=== PATIENT | female | born 1965 | race Caucasian/White ===

== ENCOUNTER 2017-05-27 12:17 | Inpatient (IN) | payer BC ==
[2017-05-27] MEDS ORDERED: Acetaminophen 500 MG TAB ONE (13:07)
--- NOTE | 2017-05-27 13:19 | RAD ---
RADIOGRAPH CHEST 2 VIEWS: Date: 05-27-17 Time: 12:52 p.m. HISTORY: 52-year-old female with dyspnea. COMPARISON: None. FINDINGS: Lungs are hypoinflated. There is cardiomegaly. There are mild diffuse interstitial densities which ar e nonspecific, but could represent mild pulmonary interstitial edema. Cardiomegaly. Mild ectasia and tortuosity of the thoracic aorta. No moderate sized or large pleural effusions. No consolidation. No pneumothorax. Calcified granuloma in left upper lobe. IMPRESSION: Probable congestive heart failure: Cardiomegaly and probable pulmonary interstitial edema. GRIS POS: [facility]
[2017-05-27 13:51] LABS: #Basophils 0.1 thou/uL (0.0-0.2); #Eosinphils 0.1 thou/uL (0.0-0.7); #Lymphocytes 1.3 thou/uL (1.20-3.40); #Monocytes 0.8 thou/uL (0.11-0.59); #Neutrophils 13.8 thou/uL (1.40-6.50); %Basophils 0.5 % (0.0-1.0); %Eosinophils 0.6 % (0.0-10.0); %Lymphocytes 8.2 % (21.0-51.0); %Monocytes 4.9 % (0.0-10.0); %Neutrophils 85.8 % (42.0-75.0); Hemoglobin 14.3 g/dL (12.0-16.0); Mean Corpuscular HGB CONC 33.5 g/dL (32.0-36.0); Mean Corpuscular Hemoglobin 32.3 pg (27.0-31.0); Mean Corpuscular Volume 96.4 fl (81.0-99.0); Mean Platelet Volume 7.2 fL (7.4-10.4); Platelet Count 239 thou/uL (130-400); RBC Distribution Width 11.7 % (11.5-14.5); Red Blood Cell (RBC) Count 4.43 mill/uL (4.20-5.40)
[2017-05-27 14:19] LABS: ALT (SGPT) 86 U/L (8-55); AST (SGOT) 75 U/L (5-34); Albumin 4.1 g/dL (3.5-5.0); Alkaline Phosphatase 114 U/L (40-150); Anion Gap 15 mmol/L (10-20); BUN (Urea Nitrogen) 10 mg/dL (9.8-20.1); Bilirubin, Total 1.1 mg/dL (0.2-1.2); CK (CPK) 40 U/L (29-168); Calc. Creatinine Clearance 0 mL/min (70-130); Calcium 9.5 mg/dL (7.8-10.44); Carbon Dioxide 19 mmol/L (22-29); Chloride 102 mmol/L (98-107); Estimated GFR-MDRD Greater than 90; Globulin 3.3 g/dL (2.4-3.5); Glucose 118 mg/dL (70-105); Potassium 3.4 mmol/L (3.5-5.1); Protein, Total 7.4 g/dL (6.0-8.3); Sodium 133 mmol/L (136-145)
[2017-05-27 14:22] LABS: CKMB 0.5 ng/mL (0-6.6); Troponin I 0.031 ng/mL (< 0.028)
[2017-05-27] MEDS ORDERED: ISOVUE-370 76%-LOCM 1 ML ONE (14:29)
--- NOTE | 2017-05-27 17:00 | CT ---
CT ARTERIOGRAM CHEST WITH IV CONTRAST AND 3D MIP IMAGING 05/27/17 HISTORY: Dyspnea. Chest pain. FINDINGS: There is good contrast opacification of the pulmonary arteries and thoracic aorta with bovine origin of the great vessels at the aortic arch. Patchy areas of interstitial and alveolar infiltrate are pre sent throughout each lung, most pronounced at the posterior segment and the upper lobes. Calcified gr anulomata are consistent with healed granulomatous disease. No bulky adenopathy is apparent. IMPRESSION: 1. No CT evidence of pulmonary embolus. 2. Multifocal pneumonitis. POS: [facility]
[2017-05-27] MEDS ORDERED: Azithromycin 500 MG in Sodium Chloride 0.9% 250 ML 250 ML IVPB SCH (17:30)
[2017-05-27] MEDS ORDERED: cefTRIAXone\\ROCEPHIN 2 GM in Sodium Chloride 0.9% 100 ML IVPB SCH (17:30)
[2017-05-27] MEDS ORDERED: Oseltamivir 75 MG CAP PO SCH (17:30)
[2017-05-27 18:41] LABS: Troponin I 0.046 ng/mL (< 0.028)
[2017-05-27] MEDS ORDERED: Ondansetron HCl/PF 4 MG/2 ML Vial IVP PRN ×2 (19:56→20:05)
[2017-05-27] MEDS ORDERED: Ondansetron ODT 4 MG TAB SL PRN (19:56)
[2017-05-27] MEDS ORDERED: Acetaminophen 325 MG TAB PO PRN (19:56)
--- NOTE | 2017-05-27 19:58 | HP ---
PRIMARY CARE PHYSICIAN: Lisandro Blake M.D. CHIEF COMPLAINT: Fever, chills, and shortness of breath. HISTORY OF PRESENT ILLNESS: Ms. Wheatley is a very pleasant 52-year-old female that has no significant past medical history other than thyroid disease. She was in her usual state of health until about 3 days ago when she started having fever, chills, and severe body aches as well as a headache. Her sis ter is a nurse practitioner, so she says she talked to her sister about her symptoms and they empiric ally diagnosed her as having the flu and called in Tamiflu for her and she started taking it. She st ated that she started to feel a little bit better, but then last night she says that she had some french sea and vomited once and also had 2 episodes of watery stool. There was no blood and then this morni ng, she started having a cough which has been nonproductive. She felt dizzy and lightheaded and then she says that about 4:00 in the morning, she could barely breathe or she started having trouble kathy thing and then it got progressively worse through the day. By 8:00 a.m., she says that she was havin g quite a bit of trouble breathing even at rest and then if she got up and moved around, it got much worse. This is the reason that she came to the ER. In the ER, she was noted to have a high temperat ure and her white blood cell count is elevated and the chest x-ray was significant for interstitial i nfiltrate and she is being admitted for presumed infectious pneumonitis. The patient denies any ches t pain. She does say that her shortness of breath did seem to be worse when she lays back, but she d enied any lower extremity edema. REVIEW OF SYSTEMS: General: She has had subjective fever and chills, but no night sweats, no weight loss. HEENT: She does complain of headache, but no sore throat or rhinorrhea, no neck pain, no rain nopathy. Pulmonary: As the history of present illness. She denies any hemoptysis, no wheezing. Ca rdiovascular: As the history of present illness. No chest pain, but she does have dyspnea on exerti on as well as breath. Positive for orthopnea, but no PND. No lower extremity edema. Gastrointestin al: She has had nausea and vomiting as well as diarrhea. No abdominal pain. Genitourinary: No men tion of any urinary frequency, hematuria or hesitancy. Neurologic: No focal weakness, numbness or s eizures. Psychiatric: No symptoms of anxiety or depression. Skin and integument: No skin changes. No rash. PAST MEDICAL HISTORY: Significant for hypothyroidism. PAST SURGICAL HISTORY: She has had a hysterectomy, a cystocele and rectocele repair as well as a compa ast biopsy. ALLERGIES: CHLORHEXIDINE, which she says causes a severe rash and even respiratory distress. SOCIAL HISTORY: She is , has 3 children. 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 She is a former smoker. She quit 25 years ago. Prior to that, she smoked abo ut a pack a day for 7 years. She occasionally drinks. FAMILY HISTORY: Significant for lung cancer in her father who was a smoker and breast cancer in her mother. CURRENT MEDICATIONS: Include levothyroxine. PHYSICAL EXAMINATION: GENERAL: She is alert and oriented. She appears to be in no acute distress. VITAL SIGNS: Her blood pressure was 180/74, heart rate 85, respiratory rate 24, temperature max was 103, currently is 99.7. HEENT: Her pupils are equal, round, and reactive. Extraocular muscles are intact. Her sclerae are anicteric. Throat: There is no erythema, no exudates. NECK: No adenopathy, no bruits. LUNGS: She has got bilateral rales. I did not appreciate any wheezing or rhonchi. She had normal i nspiratory and expiratory excursion. There was no E to A changes or egophony. CARDIOVASCULAR: She has a normal S1, S2. There is no S3 or S4. No murmurs, clicks or rubs. ABDOMEN: Soft, obese, nontender, nondistended. Positive for bowel sounds. No rebound, no guarding. NEUROLOGIC: The exam is grossly nonfocal. LABORATORY RESULTS: Sodium 133, potassium 3.4, chloride is 102, CO2 is 19, BUN of 10, creatinine 0.5 9, glucose is 118. Her AST was 75, ALT is 86. White blood cell count 16, hemoglobin 14.3, hematocri t is 42.7, platelet count is 239. D-dimer was slightly elevated at 0.56, and again on the CT scan as well as chest x-ray, there was evidence of some multifocal pneumonitis. ASSESSMENT: 1. This is a pleasant 52-year-old female that presents with high fever as well as shortness of breat h. She has an elevated white blood cell count. I suspect that the patient if she did in fact have i nfluenza, may have a post-influenza pneumonia. This could all be viral as well. She did have a slig htly elevated troponin, but I suspect this is likely due to demand ischemia and not a primary cardiac event. Congestive heart failure is less likely as clinically she does not appear to have heart fail ure. No lower extremity edema. There is no distended neck veins and her proBNP was normal. For the plan, she will be admitted. We will go ahead and continue placing her on telemetry. Blood cultures will be obtained and we will start her empirically on antibiotics for community-acquired pneumonia. 2. For the elevated troponin, we will go ahead and get an echocardiogram as it is possible that even if she does have significant coronary artery disease, she could be at risk for like a viral pericard itis or myocarditis. We will continue to trend her cardiac enzymes. 3. For her hypothyroidism, we will continue her usual dose of Synthroid and she will be placed on de ep venous thrombosis as well as gastrointestinal prophylaxis.
[2017-05-27] MEDS ORDERED: Milk Of Magnesia 30 ML UDCUP PO PRN (20:05)
[2017-05-27] MEDS ORDERED: Ondansetron ODT 4 MG TAB PO PRN (20:05)
[2017-05-27] MEDS ORDERED: Mag-Al 1200 mg/1200 mg/30 ML UDCUP PO PRN (20:05)
[2017-05-27] MEDS: Famotidine 20 MG TAB PO SCH (21:12)
[2017-05-27] MEDS: Sodium Chloride 0.9% 1,000 ML IV SCH (21:12)
[2017-05-27] MEDS: Benzonatate 100 MG CAP PO PRN (21:13)
[2017-05-27 21:30] LABS: Troponin I 0.033 ng/mL (< 0.028)
[2017-05-28] MEDS: Acetaminophen 325 MG TAB PO PRN ×2 (00:33→18:18)
[2017-05-28 05:41] LABS: #Basophils 0.1 thou/uL (0.0-0.2); #Eosinphils 0.2 thou/uL (0.0-0.7); #Lymphocytes 2.9 thou/uL (1.20-3.40); #Monocytes 1.1 thou/uL (0.11-0.59); #Neutrophils 8.8 thou/uL (1.40-6.50); %Basophils 0.7 % (0.0-1.0); %Eosinophils 1.7 % (0.0-10.0); %Monocytes 8.4 % (0.0-10.0); %Neutrophils 67.3 % (42.0-75.0); Hemoglobin 12.7 g/dL (12.0-16.0); Mean Corpuscular HGB CONC 34.5 g/dL (32.0-36.0); Mean Corpuscular Hemoglobin 33.4 pg (27.0-31.0); Mean Corpuscular Volume 96.7 fl (81.0-99.0); Mean Platelet Volume 7.1 fL (7.4-10.4); Platelet Count 229 thou/uL (130-400); RBC Distribution Width 11.6 % (11.5-14.5); Red Blood Cell (RBC) Count 3.81 mill/uL (4.20-5.40); White Blood Cell (WBC) Count 13.1 thou/uL (4.8-10.8)
[2017-05-28 05:57] LABS: Anion Gap 10 mmol/L (10-20); BUN (Urea Nitrogen) 8 mg/dL (9.8-20.1); Calc. Creatinine Clearance 213 mL/min (70-130); Calcium 8.6 mg/dL (7.8-10.44); Carbon Dioxide 25 mmol/L (22-29); Chloride 105 mmol/L (98-107); Estimated GFR-MDRD Greater than 90; Glucose 81 mg/dL (70-105); Sodium 137 mmol/L (136-145)
[2017-05-28] MEDS: Famotidine 20 MG TAB PO SCH ×2 (09:18→21:03)
[2017-05-28] MEDS: Benzonatate 100 MG CAP PO PRN ×3 (09:19→22:07)
[2017-05-28] MEDS: Oseltamivir 75 MG CAP PO SCH ×2 (09:19→21:03)
[2017-05-28] MEDS: Enoxaparin Sodium 40 MG/0.4 ML SYRINGE SC SCH (09:19)
--- NOTE | 2017-05-28 10:08 | PDOC.PN ---
- Subjective Encounter Start Date: 05/28/17 Encounter Start Time: 10:07 Ms. Wheatley says she does feel a little better this morning. She is less short of brath at rest. She notes a continued dry cough. - Objective Resuscitation Status: Resuscitation Status FULL:Full Resuscitation MAR Reviewed: Yes Vital Signs & Weight: Vital Signs (12 hours) Temp Pulse Resp BP Pulse Ox 05/28/17 08:57 63 20 94 L 05/28/17 04:55 98.4 F 59 L 18 139/63 96 05/28/17 00:30 100.7 F H 77 20 176/77 H 94 L Weight Weight 240 lb 14.4 oz I&O: 05/27/17 05/28/17 05/29/17 06:59 06:59 06:59 Intake Total 1371 Output Total 550 Balance 821 Result Diagrams: 05/28/17 05:09 05/28/17 05:09 Phys Exam - Physical Examination HEENT: PERRLA + rales scattered , no wheezing or rhonchi Cardiovascular: RRR, no significant murmur, no rub Gastrointestinal: soft, non-tender, positive bowel sounds Musculoskeletal: edema present + lower extremity edema Dx/Plan (1) Pneumonia, primary atypical Code(s): J18.9 - PNEUMONIA, UNSPECIFIED ORGANISM Status: Acute (2) Hypothyroidism Code(s): E03.9 - HYPOTHYROIDISM, UNSPECIFIED Status: Acute - Plan * Atypical Pneumonia- Will continue Rocephin and Azithromycin * Elevated Troponin- I suspect this ma be due to demand ischemia- will await Echo * Hypothyroidism- will continue Levothyroxine.
[2017-05-28] MEDS ORDERED: Potassium Chloride 20 MEQ TAB PO SCH (10:15)
[2017-05-28] MEDS ORDERED: Levothyroxine Sodium 125 MCG TAB PO SCH ×2 (10:15→10:30)
[2017-05-28] MEDS: Sodium Chloride 0.9% 1,000 ML IV SCH (11:15)
[2017-05-28] MEDS: traMADol HCl 50 MG TAB PO PRN (12:20)
[2017-05-28 15:21] VITALS: BMI 41.3
[2017-05-28] MEDS: cefTRIAXone\\ROCEPHIN 2 GM in Sodium Chloride 0.9% 100 ML IVPB SCH (16:24)
[2017-05-28] MEDS: Azithromycin 500 MG in Sodium Chloride 0.9% 250 ML 250 ML IVPB SCH (18:18)
[2017-05-29] MEDS: Acetaminophen 325 MG TAB PO PRN ×2 (02:48→09:04)
[2017-05-29] MEDS: Benzonatate 100 MG CAP PO PRN ×3 (02:48→19:38)
[2017-05-29] MEDS: Levothyroxine Sodium 125 MCG TAB PO SCH (02:50)
[2017-05-29 05:29] LABS: #Basophils 0.1 thou/uL (0.0-0.2); #Eosinphils 0.5 thou/uL (0.0-0.7); #Lymphocytes 2.9 thou/uL (1.20-3.40); #Monocytes 1.1 thou/uL (0.11-0.59); %Basophils 0.8 % (0.0-1.0); %Eosinophils 4.4 % (0.0-10.0); %Lymphocytes 24.9 % (21.0-51.0); %Monocytes 9.7 % (0.0-10.0); %Neutrophils 60.2 % (42.0-75.0); Hemoglobin 12.5 g/dL (12.0-16.0); Mean Corpuscular Hemoglobin 32.5 pg (27.0-31.0); Mean Corpuscular Volume 98.7 fl (81.0-99.0); Mean Platelet Volume 7.8 fL (7.4-10.4); Platelet Count 165 thou/uL (130-400); RBC Distribution Width 11.9 % (11.5-14.5); Red Blood Cell (RBC) Count 3.85 mill/uL (4.20-5.40); White Blood Cell (WBC) Count 11.5 thou/uL (4.8-10.8)
[2017-05-29 05:41] LABS: Anion Gap 14 mmol/L (10-20); BUN (Urea Nitrogen) 7 mg/dL (9.8-20.1); Calc. Creatinine Clearance 210 mL/min (70-130); Calcium 8.9 mg/dL (7.8-10.44); Carbon Dioxide 20 mmol/L (22-29); Chloride 105 mmol/L (98-107); Estimated GFR-MDRD Greater than 90; Glucose 87 mg/dL (70-105); Potassium 3.9 mmol/L (3.5-5.1); Sodium 135 mmol/L (136-145)
[2017-05-29] MEDS: Enoxaparin Sodium 40 MG/0.4 ML SYRINGE SC SCH (09:03)
[2017-05-29] MEDS: Famotidine 20 MG TAB PO SCH ×2 (09:03→19:39)
[2017-05-29] MEDS: Oseltamivir 75 MG CAP PO SCH (09:04)
--- NOTE | 2017-05-29 10:25 | PDOC.PN ---
- Subjective Encounter Start Date: 05/29/17 Encounter Start Time: 10:22 Ms. Wheatley says she is feeling better, but just has a headache this morning. She says the cough is improving, and she is less short of breath. - Objective Resuscitation Status: Resuscitation Status FULL:Full Resuscitation MAR Reviewed: Yes Vital Signs & Weight: Vital Signs (12 hours) Temp Pulse Resp BP Pulse Ox 05/29/17 09:00 98.1 F 61 16 150/72 H 95 05/29/17 04:00 98.9 F 54 L 22 H 141/74 H 97 05/29/17 00:12 99.3 F 69 22 H 145/77 H 97 Weight Admit Weight 239 lb 6.4 oz Weight 240 lb 14.4 oz I&O: 05/28/17 05/29/17 05/30/17 06:59 06:59 06:59 Intake Total 1371 2960 Output Total 550 Balance 821 2960 Result Diagrams: 05/29/17 05:02 05/29/17 05:02 Phys Exam - Physical Examination HEENT: PERRLA Respiratory: no wheezing, no rhonchi + scattered rales Cardiovascular: RRR, no significant murmur Gastrointestinal: soft, non-tender, positive bowel sounds Musculoskeletal: no edema Dx/Plan (1) Pneumonia, primary atypical Code(s): J18.9 - PNEUMONIA, UNSPECIFIED ORGANISM Status: Acute (2) Hypothyroidism Code(s): E03.9 - HYPOTHYROIDISM, UNSPECIFIED Status: Acute - Plan * Atypical Pneumonia- will continue Rocephin and Azithromycin * She still has some hypoxemia- will wean oxygen as tolerated * Hypothyroidism- stable * Can discontinue Telemetry * Hopefully home soon.
[2017-05-29] MEDS: traMADol HCl 50 MG TAB PO PRN ×2 (13:10→19:38)
[2017-05-29] MEDS: cefTRIAXone\\ROCEPHIN 2 GM in Sodium Chloride 0.9% 100 ML IVPB SCH ×2 (15:57→18:40)
[2017-05-29] MEDS: Azithromycin 500 MG in Sodium Chloride 0.9% 250 ML 250 ML IVPB SCH (19:07)
[2017-05-30] MEDS: traMADol HCl 50 MG TAB PO PRN (01:43)
[2017-05-30] MEDS: Benzonatate 100 MG CAP PO PRN (01:43)
[2017-05-30] MEDS: Levothyroxine Sodium 125 MCG TAB PO SCH (05:25)
[2017-05-30 07:34] VITALS: BP 153/88
[2017-05-30 07:43] VITALS: TEMP 98.3
[2017-05-30] MEDS: Famotidine 20 MG TAB PO SCH (08:48)
[2017-05-30] MEDS: Enoxaparin Sodium 40 MG/0.4 ML SYRINGE SC SCH (08:48)
[2017-05-30] MEDS ORDERED: Potassium Chloride 10 MEQ TAB PO SCH (09:28)
[2017-05-30] MEDS ORDERED: Hydrochlorothiazide 25 MG TAB PO SCH (09:28)
--- NOTE | 2017-05-30 09:30 | PDOC.PN ---
- Subjective Encounter Start Date: 05/30/17 Encounter Start Time: 09:28 Ms. Wheatley is steadily feeling better. She has just taken the oxygen off, and so far is tolerating this ok. The headache is less today. - Objective Resuscitation Status: Resuscitation Status FULL:Full Resuscitation MAR Reviewed: Yes Vital Signs & Weight: Vital Signs (12 hours) Temp Pulse Resp BP BP Pulse Ox 05/30/17 07:33 98.3 F 68 20 05/30/17 07:31 98.5 F 60 18 153/88 H 92 L 05/30/17 04:06 98.3 F 68 20 152/81 H 94 L 05/30/17 03:26 66 16 96 05/30/17 00:00 98.5 F 65 20 157/83 H 95 Weight Admit Weight 239 lb 6.4 oz Weight 240 lb 14.4 oz I&O: 05/29/17 05/30/17 05/31/17 06:59 06:59 06:59 Intake Total 2960 1350 Balance 2960 1350 Result Diagrams: 05/29/17 05:02 05/29/17 05:02 Additional Labs: Accuchecks 05/30/17 05/29/17 04:38 19:40 POC Glucose 95 161 H Phys Exam - Physical Examination HEENT: PERRLA Respiratory: no wheezing, no rales, no rhonchi, clear to auscultation bilateral Cardiovascular: RRR, no significant murmur Gastrointestinal: soft, non-tender, positive bowel sounds Musculoskeletal: no edema Dx/Plan (1) Pneumonia, primary atypical Code(s): J18.9 - PNEUMONIA, UNSPECIFIED ORGANISM Status: Acute (2) Hypothyroidism Code(s): E03.9 - HYPOTHYROIDISM, UNSPECIFIED Status: Acute (3) Hypertension Code(s): I10 - ESSENTIAL (PRIMARY) HYPERTENSION Status: Acute - Plan * Community Acquired Pneumonia- improving * HTN- her blood pressure has been consistently elevated- will start a low dose HTCZ, along with Potassium * RBBB- I suspect this may be a normal variant for her- discussed with the patient, and this can be follow-up as outpatient * If O2 sats stable, can discharge home today.
--- NOTE | 2017-05-30 11:36 | PQF ---
CLINICAL DOCUMENTATION IMPROVEMENT CLARIFICATION FORM: ICD-10 Updated PLEASE DO AN ADDENDUM TO THE PROGRESS NOTE WITH ANY DOCUMENTATION UPDATES OR ADDITIONS AND CARRY THROUGH TO DC SUMMARY. THANK YOU. DATE: 05/30 ATTN: DR. JENNIFER BROWN Please exercise your independent, professional judgment in responding to the clarification form. Clinical indicators are provided on the bottom of this form for your review. Please check appropriate box(es): [X ] Sepsis due to: (Pna, UTI, gangrenous gall bladder, etc.) ____Pneumonia Community Acquired [ ] Localized infection without sepsis [ ] Other diagnosis [ ] Unable to determine For continuity of documentation, please document condition throughout progress notes and discharge summary. Thank You. CLINICAL INDICATORS - SIGNS / SYMPTOMS / LABS ER PRESENTATION 05/27: T: 103.0 RR: 26 WBC: 16.0 POSITIVE FLU DIAGNOSIS 3 DAYS PRIOR, ON DAY 3 TAMIFLU BLOOD CULTURE 1 OF 2: POSITIVE MRSE RISK FACTORS: COMMUNITY ACQUIRED PNEUMONIA POSITIVE BLOOD CULTURE (MRSE) RECENT DIAGNOSIS INFLUENZA TREATMENTS: IV ANTIBIOTIC (ROCEPHIN & ZITHROMAX 05/27 - PRESENT) DAILY LABS (CBC, BASEMET 05/27 - PRESENT) BLOOD CULTURE IVF (NS 05/27) THANK YOU! Samantha (This form is maintained as a part of the permanent medical record) 2015 [employer]. All Rights Reserved Samantha Fleming RN, BSN [email or web address] Office: [phone] [facility]
[2017-05-30] MEDS ORDERED: Prevnar 13-Val Conj/PF 0.5 ML SYRINGE IM ONE (13:00)
[2017-05-30] MEDS ORDERED: FLU VACC QS2017-18 36 mo. & older 0.5 ML SYRINGE IM ONE (13:00)
--- NOTE | 2017-05-30 19:29 | DIS ---
PRIMARY CARE PHYSICIAN: Lisandro Blake M.D. DATE OF ADMISSION: 05/27/2017 DATE OF DISCHARGE: 05/30/2017 DISCHARGE DISPOSITION: Home. PRIMARY DISCHARGE DIAGNOSES: 1. Community-acquired pneumonia with sepsis. 2. Hypertension. 3. Hypothyroidism. 4. Obesity. DISCHARGE MEDICATIONS: Include hydrochlorothiazide 12.5 mg p.o. daily along with potassium chloride 10 mEq daily, levothyroxine 125 mcg p.o. daily, Tessalon Perles 100 mg q.4 hours as needed, and azith romycin 250 mg p.o. daily for 4 days. PROCEDURES DONE DURING ADMISSION: The patient had an echocardiogram in which the ejection fraction w as estimated at 55-60%. The left atrium was normal size. PA pressure was 36 mmHg. There is no evid ence of any valvular heart disease. The patient also had a CT angiogram of the chest. There was no evidence of pulmonary embolism; however, there was some multifocal pneumonitis CODE STATUS: FULL CODE. ALLERGIES: To CHLORHEXIDINE. HOSPITAL COURSE: Ms. Wheatley is a pleasant 52-year-old female who presented to the hospital with compl aints of high fever and difficulty breathing. She said that she had a flu-like illness several days prior, but this improved, got better, but then her symptoms dramatically got worse suddenly and she c jared to the emergency room for evaluation. There it was discovered on CT that she had a multifocal pn eumonitis. A viral panel was done and was negative for influenza as well as other several common vir uses. It is felt that she has an atypical pneumonia, was treated with Rocephin and azithromycin and improved. She was also found to have a right bundle branch block. I suspect this is probably a norm al variant for her. I did explain this to the patient in that she can follow up with her primary car e physician to see if he would like to do any additional workup. She also had a slightly elevated tr oponin which was likely as a result of demand ischemia. She is clinically improved. The patient als deepa was noted to have an elevated blood pressures throughout the course of her hospital stay. It was p ersistently elevated with a systolic around 150 and for this reason, hydrochlorothiazide along with a potassium supplement was prescribed. She will need to have her blood pressure checked as an outpati ent as well.
== END 2017-05-30 14:44 | disposition home or self-care (01) | DRG 871 ==
LOC: ERS 12:17 → 2NO 17:38 → T4-A 05-29 18:04
PROVIDERS: ADMIT Internal Medicine; ATTEND Internal Medicine
DX: A41.9 Sepsis, unspecified organism (principal); J18.9 Pneumonia, unspecified organism; I24.8 Other forms of acute ischemic heart disease; Z68.41 Body mass index [BMI] 40.0-44.9, adult; E66.9 Obesity, unspecified; E03.9 Hypothyroidism, unspecified; Z87.891 Personal history of nicotine dependence; I10 Essential (primary) hypertension
CPT/HCPCS: 36415; 36416; 71046; 71275; 80048; 80053; 82553; 83880; 84484; 85025; 85379; 87040; 87149; 87633; 90471; 90682; 93005; 93306; 94640; 96361; 96365; 96375; G0008; J0456; J0696; J1650; J2405; J7050; J7620; Q2036

== ENCOUNTER 2018-04-01 11:13 | Outpatient (CLI) | payer BC ==
[2018-04-01 13:00] LABS: #Basophils 0.1 thou/uL (0.0-0.2); #Eosinphils 0.3 thou/uL (0.0-0.7); #Lymphocytes 3.5 thou/uL (1.20-3.40); #Monocytes 0.7 thou/uL (0.11-0.59); #Neutrophils 7.3 thou/uL (1.40-6.50); %Basophils 0.9 % (0.0-1.0); %Eosinophils 2.9 % (0.0-10.0); %Lymphocytes 29.2 % (21.0-51.0); %Monocytes 6.1 % (0.0-10.0); %Neutrophils 60.9 % (42.0-75.0); Hemoglobin 14.3 g/dL (12.0-16.0); Mean Corpuscular Volume 96.8 fL (78.0-98.0); Mean Platelet Volume 6.9 fL (7.4-10.4); Platelet Count 343 thou/uL (130-400); RBC Distribution Width 11.6 % (11.5-14.5); Red Blood Cell (RBC) Count 4.62 mill/uL (4.20-5.40)
[2018-04-01 13:06] LABS: Anion Gap 13 mmol/L (10-20); BUN (Urea Nitrogen) 12 mg/dL (9.8-20.1); Calc. Creatinine Clearance 0 mL/min (70-130); Calcium 9.8 mg/dL (7.8-10.44); Carbon Dioxide 25 mmol/L (22-29); Chloride 101 mmol/L (98-107); Estimated GFR-MDRD Greater than 90; Glucose 86 mg/dL (70-105); Potassium 3.4 mmol/L (3.5-5.1); Sodium 136 mmol/L (136-145)
== END 2018-04-01 11:14 | disposition home or self-care (01) ==
LOC: LABBT 11:13
PROVIDERS: ATTEND Orthopaedic Surgery
DX: Z01.818 Encounter for other preprocedural examination (principal); S83.242A Other tear of medial meniscus, current injury, left knee, initial encounter
CPT/HCPCS: 80048; 85025; 93005; 93010

== ENCOUNTER → 2018-04-07 | Day surgery (SDC) | payer BC ==
[2018-04-01 11:44] VITALS: BMI 40.8
[~2018-04-07] MED LIST: Bupivacaine HCl 0.5%/Epinephrine 1:200,000/PF 30 ml Vial ONE; CEFAZOLIN 2 GM/50 ML BAG ONE; Fentanyl 100 MCG/2 ML VIAL ONE; Lidocaine 2% w/Epinephrine 1:200K 20 ML VIAL ONE; PROPOFOL 20 ML ONE
--- NOTE | 2018-04-07 14:35 | OP ---
DATE OF PROCEDURE: 04/07/2018 PREOPERATIVE DIAGNOSES: Left knee medial meniscus tear and anterior cruciate ligament tear. POSTOPERATIVE DIAGNOSES: Left medial and lateral meniscus tear and anterior cruciate ligament tear, partial. ANESTHESIA: General. BLOOD LOSS: Minimal. SPECIMENS: None. DRAINS: None. COMPLICATIONS: None. DESCRIPTION OF PROCEDURE: The patient was taken to the operating room, where general anesthesia was induced. Her left leg was prepped and draped in sterile fashion. Scope was placed in the lateral portal. A probe was placed in the medial portal. Patellofemoral joint had just mild degenerative changes. Medial compartment had a complex tear at the posterior horn of the medial meniscus. This was debrided using basket forceps, smoothed using a 4.0 full radius resector, did have extended areas of grade 3 chondromalacia. The ACL was inspected and found to have somewhat wavy consisted of fibers. The fibers did tense with anterior drawer test. The lateral compartment had a central portion of lateral meniscus tear and large loose body. I performed lateral meniscectomy, removed loose body. The knee was then irrigated and drained. A sterile dressing was applied. Job ID: [id number]
== END ==
LOC: SDC 07:04
PROVIDERS: ATTEND Orthopaedic Surgery
PROC: 0SBD4ZZ Excision of Left Knee Joint, Percutaneous Endoscopic Approach (ICD-10-PCS; principal; 2018-04-07)
DX: M23.222 Derangement of posterior horn of medial meniscus due to old tear or injury, left knee (principal); M23.262 Derangement of other lateral meniscus due to old tear or injury, left knee; M23.42 Loose body in knee, left knee; Z85.3 Personal history of malignant neoplasm of breast; Z88.8 Allergy status to other drugs, medicaments and biological substances; Z79.899 Other long term (current) drug therapy
CPT/HCPCS: 96374; G8978-GP-CJ; G8979-GP-CJ; G8980-GP-CJ; J0670; J2704; J3010

== ENCOUNTER 2020-02-10 07:39 | Outpatient (CLI) | payer BC, OTHER ==
[2020-02-10 11:32] LABS: #Basophils 0.1 thou/uL (0.0-0.2); #Eosinphils 0.3 thou/uL (0.0-0.7); #Lymphocytes 2.9 thou/uL (1.20-3.40); #Monocytes 0.5 thou/uL (0.11-0.59); #Neutrophils 6.5 thou/uL (1.40-6.50); %Basophils 0.7 % (0.0-1.0); %Eosinophils 3.4 % (0.0-10.0); %Lymphocytes 28.3 % (21.0-51.0); %Monocytes 4.5 % (0.0-10.0); %Neutrophils 63.1 % (42.0-75.0); Hemoglobin 14.8 g/dL (12.0-16.0); Mean Corpuscular HGB CONC 34.1 g/dL (32.0-36.0); Mean Corpuscular Hemoglobin 32.7 pg (27.0-31.0); Mean Corpuscular Volume 95.9 fL (78.0-98.0); Mean Platelet Volume 7.4 fL (7.4-10.4); Platelet Count 270 thou/uL (130-400); RBC Distribution Width 11.9 % (11.5-14.5); Red Blood Cell (RBC) Count 4.54 mill/uL (4.20-5.40); White Blood Cell (WBC) Count 10.3 thou/uL (4.8-10.8)
[2020-02-10 12:00] LABS: ALT (SGPT) 21 U/L (8-55); AST (SGOT) 17 U/L (5-34); Albumin 4.3 g/dL (3.5-5.0); Alkaline Phosphatase 83 U/L (40-110); Anion Gap 14 mmol/L (10-20); BUN (Urea Nitrogen) 14 mg/dL (9.8-20.1); Bilirubin, Direct 0.3 mg/dL (0.1-0.3); Bilirubin, Total 0.9 mg/dL (0.2-1.2); Calc. Creatinine Clearance 0 mL/min (70-130); Carbon Dioxide 22 mmol/L (22-29); Chloride 107 mmol/L (98-107); Estimated GFR-MDRD Greater than 90; Glucose 127 mg/dL (70-105); Potassium 4.2 mmol/L (3.5-5.1); Protein, Total 6.8 g/dL (6.0-8.3); Sodium 139 mmol/L (136-145)
[2020-02-10 17:06] LABS: SARS-CoV-2 MS2 Positive; SARS-CoV-2 N Gene Negative; SARS-CoV-2 S Gene Negative; SARS-CoV-2 by NAA Not Detected (NotDetected); SARS-CoV-2 orf1ab Negative
--- NOTE | 2020-02-13 12:01 | EKG ---
Test Reason : PREOP Blood Pressure : / mmHG Vent. Rate : 056 BPM Atrial Rate : 056 BPM P-R Int : 146 ms QRS Dur : 114 ms QT Int : 434 ms P-R-T Axes : 007 -09 058 degrees QTc Int : 418 ms Sinus bradycardia Incomplete right bundle branch block Cannot rule out Anterior infarct (cited on or before 10-FEB-2020) Abnormal ECG Confirmed by WILLY RITTER (2) on 02/13/2020 12:01:16 PM Referred By: ASAEL Confirmed By:WILLY RITTER
== END 2020-02-10 07:40 | disposition home or self-care (01) ==
LOC: LABBT 07:39
PROVIDERS: ATTEND Surgery
DX: Z01.818 Encounter for other preprocedural examination (principal); Z20.828 Contact with and (suspected) exposure to other viral communicable diseases; K80.20 Calculus of gallbladder without cholecystitis without obstruction
CPT/HCPCS: 80048; 80076; 85025; 87635; 93005; 93010; U0003

== ENCOUNTER 2020-02-15 06:51 | Day surgery (SDC) | payer BC ==
[2020-02-14 14:41] VITALS: BMI 40.1
[2020-02-15] MEDS ORDERED: Bupivacaine/Epinephrine 0.25% 30 ML VIAL ONE (08:14)
[2020-02-15] MEDS ORDERED: Midazolam HCl 2 mg/2 ml Vial ONE (08:40)
[2020-02-15] MEDS ORDERED: Maxitrol 0.1% Opth Oint 3.5 GM TUBE ONE (08:50)
[2020-02-15] MEDS ORDERED: Fentanyl 100 MCG/2 ML VIAL ONE ×2 (08:55→10:13)
[2020-02-15] MEDS ORDERED: Triple Antibiotic Opth Oint 3.5 GM TUBE TOP SCH (09:00)
[2020-02-15] MEDS ORDERED: Glycopyrrolate 0.2 MG/ML 5 ML SYRINGE ONE ×2 (10:15→11:37)
[2020-02-15] MEDS ORDERED: Promethazine HCl 25 MG/ML VIAL ONE (10:33)
--- NOTE | 2020-02-15 10:35 | OP ---
DATE OF PROCEDURE: 02/15/2020 PREOPERATIVE DIAGNOSIS: Symptomatic gallstones. POSTOPERATIVE DIAGNOSIS: Symptomatic gallstones. PROCEDURE PERFORMED: Laparoscopic cholecystectomy. ANESTHESIA: General. ESTIMATED BLOOD LOSS: Minimal. COMPLICATIONS: None. SPECIMEN: Gallbladder. FINDINGS: Chronic cholecystitis. PROCEDURE IN DETAIL: The patient was taken to the operating room and laid supine on the operating room table. After general anesthetic was obtained, the abdomen was prepped and draped in a sterile fashion. A curved incision was made below the umbilicus. Cautery was used to dissect down to the umbilical fascia. Umbilical fascia was incised and held up using a Milena. The abdominal cavity was entered using a Marybeth clamp. Holding stitch of Vicryl was placed on each side of the fascia. Meyer trocar was placed. High-flow pneumoperitoneum was obtained. An upper midline 5 mm port and 2 right upper quadrant 5 mm ports were placed under direct camera visualization. The gallbladder was retracted from the gallbladder fossa. The peritoneum of the gallbladder was opened anteriorly and posteriorly. The critical view triangle was seen showing only the cystic duct and cystic artery branching from medial to lateral. There were no other branching structures. Two clips were placed proximally on the cystic duct and one laterally. It was cut using laparoscopic scissors. The cystic artery was taken in the same way. Electrocautery was then used to dissect the gallbladder out of the gallbladder fossa. The gallbladder was placed in an Endo catch bag and brought out through the Meyer. There was no bleeding or bile in the liver bed. The cystic duct stump and cystic artery stump were intact, without evidence of extravasation or bleeding. All port sites were infiltrated using local anesthesia. All ports were removed under camera visualization. Pneumoperitoneum was let down. The Vicryl was used to close the fascial defect below the umbilicus. All incisions were irrigated and closed using 4-0 Monocryl and Dermabond. The patient was en route to Recovery in stable condition. All instrument counts, needle counts and lap counts were correct. Job ID: [id number]
[2020-02-15] MEDS ORDERED: Rocuronium Bromide 10 MG/ML (10ML VIAL) ONE (11:37)
[2020-02-15] MEDS ORDERED: Lidocaine 1% PF 5 ML VIAL ONE (11:37)
[2020-02-15] MEDS ORDERED: PROPOFOL 200 MG/20 ML VIAL ONE (11:37)
[2020-02-15] MEDS ORDERED: Ondansetron PF 4 MG/2 ML Vial ONE (11:37)
[2020-02-15] MEDS ORDERED: Ketorolac Tromethamine 30 MG/ML VIAL ONE (11:37)
[2020-02-15] MEDS ORDERED: Succinylcholine Chloride 20 MG/ML 10 ml SYRINGE FS ONE (11:37)
[2020-02-15] MEDS ORDERED: Dexamethasone 20 MG/5 ML VIAL ONE (11:37)
[2020-02-15] MEDS ORDERED: Morphine 2 MG/ML VIAL ONE (12:15)
[2020-02-15] MEDS ORDERED: HYDROcodone/Acetaminophen 5/325 mg Tablet ONE (12:27)
== END 2020-02-15 13:30 | disposition home or self-care (01) ==
LOC: SDC 06:51
PROVIDERS: ATTEND Surgery
PROC: 0FT44ZZ Resection of Gallbladder, Percutaneous Endoscopic Approach (ICD-10-PCS; principal; 2020-02-15)
DX: K80.10 Calculus of gallbladder with chronic cholecystitis without obstruction (principal); E07.9 Disorder of thyroid, unspecified; E78.00 Pure hypercholesterolemia, unspecified; Z79.899 Other long term (current) drug therapy; Z88.8 Allergy status to other drugs, medicaments and biological substances
CPT/HCPCS: 88304; J0690; J1100; J1885; J2250; J2270; J2405; J2550; J2704; J3010

== ENCOUNTER 2020-08-07 13:03 | Outpatient (CLI) | payer OTHER, SELFPAY ==
[2020-08-07 15:42] LABS: ALT (SGPT) 31 U/L (8-55); AST (SGOT) 23 U/L (5-34); Albumin 4.4 g/dL (3.5-5.0); Alkaline Phosphatase 72 U/L (40-110); Anion Gap 13 mmol/L (10-20); BUN (Urea Nitrogen) 22 mg/dL (9.8-20.1); Bilirubin, Total 0.8 mg/dL (0.2-1.2); Calc. Creatinine Clearance 0 mL/min (70-130); Calcium 9.5 mg/dL (7.8-10.44); Carbon Dioxide 27 mmol/L (22-29); Chloride 102 mmol/L (98-107); Globulin 2.6 g/dL (2.4-3.5); Glucose 83 mg/dL (70-105); Potassium 4.1 mmol/L (3.5-5.1); Sodium 138 mmol/L (136-145)
[2020-08-07 16:59] LABS: #Basophils 0.1 10x3/uL (0.0-0.2); #Eosinphils 0.3 10x3/uL (0.0-0.5); #Monocytes 0.7 10x3/uL (0.0-1.1); #Neutrophils 8.1 10x3/uL (1.5-8.4); %Basophils 0.7 % (0.0-2.0); %Eosinophils 2.2 % (0.0-6.0); %Lymphocytes 22.7 % (18.0-47.0); %Monocytes 5.7 % (0.0-10.0); %Neutrophils 68.4 % (40.0-75.0); Mean Corpuscular HGB CONC 33.5 g/dL (32.0-36.0); Mean Corpuscular Hemoglobin 31.7 pg (27.0-33.0); Mean Corpuscular Volume 94.6 fl (81.6-98.3); Mean Platelet Volume 9.7 fl (7.4-10.4); Platelet Count 275 10x3/uL (150-450); RBC Distribution Width 12.6 % (11.5-14.5); Red Blood Cell (RBC) Count 4.42 10x6/uL (3.90-5.03); White Blood Cell (WBC) Count 11.8 10x3/uL (3.5-10.5)
[2020-08-07 21:02] LABS: Hemoglobin A1c 5.3 % (4.0-6.0)
[2020-08-08 06:59] LABS: SARS-CoV-2 PCR by NAA Not Detected (NotDetected)
== END 2020-08-07 13:04 | disposition home or self-care (01) ==
LOC: LABBT 13:03
PROVIDERS: ATTEND Surgery
DX: Z01.818 Encounter for other preprocedural examination (principal); E66.01 Morbid (severe) obesity due to excess calories; Z20.822 Contact with and (suspected) exposure to COVID-19
CPT/HCPCS: 71046; 80053; 83036; 85025; 87635; 93005; 93010; U0003; U0005

== ENCOUNTER 2020-08-07 13:15 | Inpatient (IN) | payer OTHER, SELFPAY ==
[2020-08-08 11:39] VITALS: BMI 41.1
[2020-08-10] MEDS ORDERED: Heparin 5,000 UNITS/ML VIAL ONE (06:20)
[2020-08-10] MEDS ORDERED: Midazolam HCl 2 mg/2 ml Vial ONE (06:45)
[2020-08-10] MEDS ORDERED: Fentanyl 100 MCG/2 ML VIAL ONE ×3 (06:45→09:24)
[2020-08-10] MEDS ORDERED: Bupivacaine 0.25% HCL 30 ML VIAL ONE (06:48)
[2020-08-10] MEDS ORDERED: Lidocaine 1% w/Epinephrine 1:100K 20 ML VIAL ONE (06:48)
[2020-08-10] MEDS ORDERED: Lidocaine 1% PF 5 ML VIAL ONE (07:35)
[2020-08-10] MEDS ORDERED: Rocuronium Bromide 10 MG/ML (10ML VIAL) ONE (07:35)
[2020-08-10] MEDS ORDERED: Glycopyrrolate 0.2 MG/ML 5 ML SYRINGE ONE ×2 (07:35)
[2020-08-10] MEDS ORDERED: Dexamethasone 20 MG/5 ML VIAL ONE (07:35)
[2020-08-10] MEDS ORDERED: Ondansetron PF 4 MG/2 ML Vial ONE ×2 (07:35→09:07)
[2020-08-10] MEDS ORDERED: PROPOFOL 200 MG/20 ML VIAL ONE (07:35)
[2020-08-10] MEDS ORDERED: Promethazine HCl 25 MG/ML VIAL IM PRN ×2 (08:12→09:30)
[2020-08-10] MEDS ORDERED: Promethazine HCl 25 MG/ML VIAL SLOW IVP PRN (08:12)
[2020-08-10] MEDS ORDERED: Ondansetron HCl/PF 4 MG/2 ML Vial IVP PRN (08:12)
[2020-08-10] MEDS ORDERED: Promethazine HCl 25 MG/ML VIAL ONE (09:28)
[2020-08-10] MEDS ORDERED: diphenhydrAMINE 50 MG/ML VIAL IM/IV PRN (09:30)
[2020-08-10] MEDS ORDERED: diphenhydrAMINE 25 MG CAP PO PRN (09:30)
[2020-08-10] MEDS ORDERED: Zolpidem Tartrate 5 MG TAB PO PRN (09:30)
[2020-08-10] MEDS ORDERED: Ondansetron PF 4 MG/2 ML Vial IVP PRN (09:30)
[2020-08-10] MEDS ORDERED: Fentanyl CADD 100 ML IVPB SCH (09:30)
[2020-08-10] MEDS ORDERED: Naloxone HCl 0.4 mg/ml Vial IV PRN (09:30)
[2020-08-10] MEDS ORDERED: Hydrocodone-Acetamin 15 ML UDCUP PO PRN (10:35)
[2020-08-10] MEDS ORDERED: hydrALAZINE 20 MG/ML VIAL SLOW IVP PRN (10:35)
[2020-08-10] MEDS ORDERED: Dextrose 5% in Water 1,000 ML IV PRN (10:35)
[2020-08-10] MEDS ORDERED: diphenhydrAMINE 50 MG/ML VIAL IVP PRN (10:35)
[2020-08-10] MEDS ORDERED: Dextrose 50% Abboject 50 ML SYRINGE SLOW IVP PRN (10:35)
[2020-08-10] MEDS: D5 1/2 NS w/20 mEq KCL 1,000 ML IV SCH ×2 (11:44→16:52)
[2020-08-10] MEDS: Promethazine HCl 25 MG/ML VIAL IM PRN ×2 (12:55→20:26)
[2020-08-10] MEDS: Ondansetron PF 4 MG/2 ML Vial IVP PRN (19:17)
[2020-08-10] MEDS ORDERED: Enoxaparin Sodium 40 MG/0.4 ML SYRINGE SC SCH (21:00)
[2020-08-11] MEDS: Promethazine HCl 25 MG/ML VIAL IM PRN (00:28)
[2020-08-11] MEDS: D5 1/2 NS w/20 mEq KCL 1,000 ML IV SCH ×2 (00:29→09:08)
[2020-08-11 05:46] LABS: #Basophils 0.1 thou/uL (0.0-0.2); #Lymphocytes 3.1 thou/uL (1.20-3.40); #Monocytes 1.6 thou/uL (0.11-0.59); #Neutrophils 13.9 thou/uL (1.40-6.50); %Basophils 0.3 % (0.0-1.0); %Eosinophils 0.2 % (0.0-10.0); %Lymphocytes 16.3 % (21.0-51.0); %Monocytes 8.7 % (0.0-10.0); %Neutrophils 74.4 % (42.0-75.0); Mean Corpuscular HGB CONC 31.9 g/dL (32.0-36.0); Mean Corpuscular Hemoglobin 31.7 pg (27.0-31.0); Mean Corpuscular Volume 99.3 fL (78.0-98.0); Mean Platelet Volume 7.1 fL (7.4-10.4); Platelet Count 235 thou/uL (130-400); RBC Distribution Width 11.9 % (11.5-14.5); White Blood Cell (WBC) Count 18.7 thou/uL (4.8-10.8)
[2020-08-11 06:02] LABS: Anion Gap 11 mmol/L (10-20); BUN (Urea Nitrogen) 10 mg/dL (9.8-20.1); Calc. Creatinine Clearance 176 mL/min (70-130); Calcium 8.4 mg/dL (7.8-10.44); Carbon Dioxide 25 mmol/L (22-29); Chloride 104 mmol/L (98-107); Glucose 129 mg/dL (70-105); Potassium 4.2 mmol/L (3.5-5.1); Sodium 136 mmol/L (136-145)
[2020-08-11] MEDS ORDERED: Pantoprazole 40 MG VIAL IVP SCH (09:00)
[2020-08-11] MEDS: Ondansetron PF 4 MG/2 ML Vial IVP PRN (10:44)
[2020-08-11 15:28] VITALS: BP 137/82; TEMP 98.1
== END 2020-08-11 16:20 | disposition home or self-care (01) | DRG 621 ==
LOC: SURG A 08-10 06:11 → EDSTATUS 08-10 13:15
PROVIDERS: ADMIT Surgery; ATTEND Surgery
PROC: 0DB64Z3 Excision of Stomach, Percutaneous Endoscopic Approach, Vertical (ICD-10-PCS; principal; 2020-08-10)
DX: E66.01 Morbid (severe) obesity due to excess calories (principal); Z88.8 Allergy status to other drugs, medicaments and biological substances; Z90.710 Acquired absence of both cervix and uterus; Z90.49 Acquired absence of other specified parts of digestive tract; Z68.41 Body mass index [BMI] 40.0-44.9, adult; I10 Essential (primary) hypertension
CPT/HCPCS: 36415; 80048; 85025; 88307; 94760; C9113; J0690; J1100; J1644; J1650; J2250; J2405; J2550; J2704; J3010; J3480; S0020